=== PATIENT | male | born 2000 | race Two or more races ===

== ENCOUNTER 2024-04-20 22:28 | Emergency (ER) | payer OTHER ==
[~2024-04-20] VITALS: Ht 185.4 cm; Wt 149.7 kg
[2024-04-21] MEDS ORDERED: KETOROLAC TROMETHAMINE 30 MG VIAL IV STA (01:45)
[2024-04-21 02:25] LABS: MEAN CELL VOLUME 80.1 fL (80.0-100.00); MEAN CORPUSCULAR HEMOGLOBIN 27.3 pg (27.00-32.0); MEAN CORPUSCULAR HGB CONC 34.1 g/dl (32.0-36.0); PLATELET COUNT 299 K/uL (150-450); RED BLOOD COUNT 5.49 M/uL (4.00-6.00); RED CELL DISTRIBUTION WIDTH 13.9 % (11.5-14.5)
[2024-04-21 02:31] LABS: PH,URINE 5.5 (5.0-8.0); URINE APPEARANCE Cloudy; URINE BILIRRUBIN Small (NEGATIVE); URINE BLOOD Negative; URINE COLOR Dark Yellow; URINE GLUCOSE Negative (NEGATIVE); URINE KETONE 15 (NEGATIVE); URINE LEUKOCYTE Trace; URINE NITRATE Negative; URINE PROTEIN Trace (NEGATIVE)
[2024-04-21 02:35] LABS: URINE BACTERIA 42.8 uL (0.0-1933); URINE CAST 16.03 uL (0.0-1.40); URINE EPITHELIAL CELLS 20.8 uL (0.0-38.8); URINE RBC 4.2 uL (0.0-20.8); URINE WBC 14.5 uL (0.0-23.2)
[2024-04-21 02:47] LABS: ALBUMIN 4.1 gm/dL (3.4-5.0); BILIRUBIN TOTAL 1.72 mg/dL (0.3-1.2); CALCIUM 10.1 mg/dL (8.5-10.1); CREATININE SERUM 1.4 mg/dL (0.70-1.30); GFR 63.37; GLOBULINA 3.7 G/DL (2.4-3.5); POTASSIUM 4.38 mEq/L (3.5-5.1); TOTAL PROTEIN 7.8 gm/dL (6.4-8.2)
[2024-04-21 02:51] LABS: URINE MUCUS MODERATE
[2024-04-21] MEDS ORDERED: 0.9 % SODIUM CHLORIDE 1,000 ML IV ONE (03:30)
== END 2024-04-21 11:49 | disposition home or self-care (01) ==
LOC: ER 22:30
PROVIDERS: General Practice
DX: R10.30 Lower abdominal pain, unspecified (principal)